=== PATIENT | male | born 2000 | race Caucasian/White ===

== ENCOUNTER 2021-06-10 19:56 | Inpatient (IN) | payer MEDICAID, OTHER ==
[~2021-06-10] VITALS: Ht 182.9 cm; Wt 113.9 kg
[2021-06-10] MEDS ORDERED: SERT-162 PO (22:29)
[2021-06-10 23:08] LABS: BASOPHILS % (AUTO) 0.4 % (0.0-2.0); EOSINOPHILS % (AUTO) 0.7 % (1.0-6.0); HEMATOCRIT 42.1 % (41-53); HEMOGLOBIN 14.4 g/dL (13.5-17.5); LYMPHOCYTES # (AUTO) 1.5 K/uL (1.0-4.8); LYMPHOCYTES % (AUTO) 13.8 % (22.0-44.0); MEAN CORPUSCULAR HEMOGLOBIN 29.4 pg (26.0-34.0); MEAN CORPUSCULAR HGB CONC 34.1 G/dL (31.0-37.0); MEAN CORPUSCULAR VOLUME 86 fL (80-100); MONOCYTES # (AUTO) 0.4 K/uL (0.1-1.0); NEUTROPHILS % (AUTO) 81.1 % (40.0-70.0); PLATELET COUNT (AUTO) 378 K/uL (150-450); RED BLOOD CELL COUNT(AUTO) 4.89 MIL/uL (4.50-5.90); RED CELL DISTRIBUTION WIDTH 13.5 % (11.5-14.5)
[2021-06-10 23:15] LABS: ANION GAP 9 mmol/L (8-16); CALCIUM, TOTAL 9.5 mg/dL (8.8-10.5); CARBON DIOXIDE 28 mmol/L (22-29); CHLORIDE 104 mmol/L (98-107); CREATININE 1.06 mg/dL (0.60-1.30); GLOMERULAR FILTR. RATE CALC > 60 mL/min (>60); GLUCOSE,RANDOM 105 mg/dL (70-110); SODIUM SERUM 141 mmol/L (136-145); UREA NITROGEN, BLOOD 10 mg/dL (7-18)
[2021-06-10 23:21] LABS: ALANINE AMINOTRANSFERASE 60 U/L (12-78); ALKALINE PHOSPHATASE 57 U/L (46-116); ASPARTATE AMINOTRANSFERASE 23 U/L (15-37); BILIRUBIN,TOTAL 0.3 mg/dL (0.1-1.0); TOTAL PROTEIN, SERUM 7.8 g/dL (6.4-8.2)
[2021-06-10 23:49] LABS: COVID AG,FIA SOURCE NASOPHARYNGEAL
[2021-06-10 23:50] LABS: ACETAMINOPHEN < 2 mcg/mL (10-30); SALICYLATE < 2.8 mg/dL (2.8-20.0)
[2021-06-11] MEDS ORDERED: LORazepam 2 MG TABLET PO PRN (00:15)
[2021-06-11] MEDS ORDERED: HALOPERIDOL 5 MG TABLET PO PRN (00:15)
[2021-06-11] MEDS ORDERED: ZOLPIDEM TARTRATE 10 MG TABLET PO PRN (00:15)
[2021-06-11 04:13] VITALS: BP 107/62
[2021-06-11] MEDS ORDERED: INFLUENZA VIRUS VACCINE QVS 2021-22 (6MO+)/PF 60 MCG/0.5 ML SYRINGE IM. ONE (07:00)
[2021-06-11] MEDS ORDERED: PETROLATUM,WHITE 28 GM JELLY TP PRN (07:45)
[2021-06-11] MEDS ORDERED: NICOTINE 14 MG/24 HOUR PATCH TD PRN (07:45)
[2021-06-11] MEDS ORDERED: MAGNESIUM HYDROXIDE SUSPENSION 30 ML UDCUP PO PRN (07:45)
[2021-06-11] MEDS ORDERED: DOCUSATE SODIUM 100 MG CAPSULE PO PRN (07:45)
[2021-06-11] MEDS ORDERED: CloNIDine HCL 0.1 MG TABLET PO PRN (07:45)
[2021-06-11] MEDS ORDERED: MAG HYDROX/AL HYDROX/SIMETH ES 30 ML SUSPENSION UDCUP PO PRN (07:45)
[2021-06-11] MEDS ORDERED: IBUPROFEN 400 MG TABLET PO PRN (07:45)
[2021-06-11] MEDS ORDERED: ACETAMINOPHEN 325 MG TABLET PO PRN (07:45)
[2021-06-11] MEDS ORDERED: GuaiFENesin/D-METHORPHAN [SUGAR-FREE] 200-20MG/10 ML SYRUP UDCUP PO PRN (07:45)
[2021-06-11] MEDS ORDERED: ONDANSETRON HCL 4 MG TABLET PO PRN (07:45)
[2021-06-11] MEDS ORDERED: ALBUTEROL SULFATE HFA 90 MCG/PUFF 8 GM INHALER IH PRN (07:45)
[2021-06-11] MEDS ORDERED: LOPERAMIDE HCL 2 MG CAPSULE PO PRN (07:45)
[2021-06-11 08:16] VITALS: BP 130/69
[2021-06-11] MEDS: SERTRALINE HCL 100 MG TABLET PO SCH (14:46)
[2021-06-11 16:33] VITALS: BP 109/55
[2021-06-12 01:21] VITALS: BP 120/74
[2021-06-12 07:47] LABS: CHOL/HDL RATIO 5.3 (4.2-7.3)
[2021-06-12 08:21] VITALS: BP 126/64
[2021-06-12] MEDS: SERTRALINE HCL 100 MG TABLET PO SCH (08:28)
[2021-06-12] MEDS ORDERED: TraZODone HCL 50 MG TABLET PO PRN (11:45)
[2021-06-12 16:16] VITALS: BP 119/73
[2021-06-13 04:17] VITALS: BP 133/74
[2021-06-13 08:48] VITALS: BP 111/65
[2021-06-13] MEDS: SERTRALINE HCL 100 MG TABLET PO SCH (09:03)
[2021-06-13 16:21] VITALS: BP 126/80
== END 2021-06-13 20:00 | disposition home or self-care (01) | DRG 751 ==
LOC: EMS 20:03 → B2S 06-11 00:17
PROVIDERS: ADMIT Psychiatry & Neurology Psychiatry; ATTEND Psychiatry & Neurology Psychiatry
DX: F33.2 Major depressive disorder, recurrent severe without psychotic features (principal); R45.851 Suicidal ideations; I95.9 Hypotension, unspecified; D72.829 Elevated white blood cell count, unspecified; Z20.822 Contact with and (suspected) exposure to COVID-19; E66.9 Obesity, unspecified; E78.5 Hyperlipidemia, unspecified; T39.1X2A Poisoning by 4-Aminophenol derivatives, intentional self-harm, initial encounter; Y92.89 Other specified places as the place of occurrence of the external cause; Z79.899 Other long term (current) drug therapy; Z68.34 Body mass index [BMI] 34.0-34.9, adult; Z23 Encounter for immunization
CPT/HCPCS: 80053; 80061; 85025; 90686; 93005; 99285; G0480; G0481